=== PATIENT | female | born 1995 | race Hispanic/Latino ===

== ENCOUNTER 2018-04-06 18:50 | Emergency (ER) | payer SELFPAY ==
[2018-04-06 18:55] VITALS: BP 127/87; TEMP 98.4
--- NOTE | 2018-04-06 20:00 | ED PDOC ---
HPI: Psych/Substance Abuse Time Seen by Provider: 04/06/18 19:05 Chief Complaint (Nursing): Psychiatric Evaluation Chief Complaint (Provider): Psychiatric Evaluation History Per: Patient History/Exam Limitations: no limitations Onset/Duration Of Symptoms: Mins Current Symptoms Are (Timing): Still Present Suicide/Self Injury Attempted (Context): Cut Wrists Modifying Factor(s): None Additional Complaint(s): 23 y/o female with a PMHx of prolonged QT interval syndrome presents to the ED for psychiatric evaluation. Patient reports of having depression and suicidal thoughts prior to arrival. Patient states she cut herself multiple times with a razor on the left forearm. Patient denies any bleeding further stating cuts were more like scratches. Patient reports of similar episodes in the past. Otherwise, patient denies taking any medications for symptom relief, taking any medications for depression and any medical complaints. PMD: No provider Past Medical History Reviewed: Historical Data, Nursing Documentation, Vital Signs Vital Signs: Last Vital Signs Temp 98.4 F 04/06/18 18:53 Pulse 95 H 04/06/18 18:53 Resp 18 04/06/18 18:53 BP 127/87 04/06/18 18:53 Pulse Ox 100 04/06/18 18:53 - Medical History PMH: No Chronic Diseases - Surgical History Surgical History: No Surg Hx - Family History Family History: States: Unknown Family Hx - Social History Alcohol: None Drugs: Other (marijuana) - Home Medications Home Medications: Ambulatory Orders Medication Instructions Recorded No Known Home Med 04/06/18 - Allergies Allergies/Adverse Reactions: Allergies Allergy/AdvReac Type Severity Reaction Status Date / Time No Known Allergies Allergy Verified 04/06/18 18:55 Review of Systems ROS Statement: Except As Marked, All Systems Reviewed And Found Negative Psych: Positive for: Depression, Suicidal ideation Physical Exam - Reviewed Nursing Documentation Reviewed: Yes Vital Signs Reviewed: Yes - Physical Exam Appears: Positive for: No Acute Distress Head Exam: Positive for: ATRAUMATIC, NORMOCEPHALIC Skin: Positive for: Normal Color, Warm, Dry Eye Exam: Positive for: Normal appearance, EOMI, PERRL Neck: Positive for: Normal, Painless ROM, Supple Cardiovascular/Chest: Positive for: Regular Rate, Rhythm. Negative for: Murmur Respiratory: Positive for: Normal Breath Sounds. Negative for: Respiratory Distress Gastrointestinal/Abdominal: Positive for: Normal Exam, Soft. Negative for: Tenderness Back: Positive for: Normal Inspection. Negative for: L CVA Tenderness, R CVA Tenderness, Vertebral Tenderness Extremity: Positive for: Normal ROM, Other (Multiple abrasions to the ventral aspect of the left forearm. No bleeding or lacerations). Negative for: Pedal Edema, Deformity Neurologic/Psych: Positive for: Alert, Oriented. Negative for: Motor/Sensory Deficits - ECG O2 Sat by Pulse Oximetry: 100 (RA) Pulse Ox Interpretation: Normal Medical Decision Making Medical Decision Making: Time: 1937 Impression: Depression and Suicidal Ideation. Plan: -- Alcohol Serum -- Urine Drug Screen -- Crisis Evaluation -- ED Urine -- 1:1 Observation Time: 2122 -- Patient evaluated by crisis who state patient is stable for discharge home, cleared by Dr. Reyna with a diagnosis of adjustment disorder. _ Scribe Attestation: Documented by Faith Sewell, acting as a scribe for Lana Gibbs MD. Provider Scribe Attestation: All medical record entries made by the Scribe were at my direction and personally dictated by me. I have reviewed the chart and agree that the record accurately reflects my personal performance of the history, physical exam, medical decision making, and the department course for this patient. I have also personally directed, reviewed, and agree with the discharge instructions and disposition. Disposition - Clinical Impression Clinical Impression: Adjustment disorder - Patient ED Disposition Is Patient to be Admitted: No Doctor Will See Patient In The: Office Counseled Patient/Family Regarding: Studies Performed, Diagnosis, Need For Followup - Disposition Referrals: [facility] [Outside] Disposition: Routine/Home Disposition Time: 21:23 Condition: GOOD Additional Instructions: PIERRE CALDERON, thank you for letting us take care of you today. Your provider was Lana Gibbs MD and you were treated for PSYCH EVAL. The emergency medical care you received today was directed at your acute symptoms. If you were prescribed any medication, please fill it and take as directed. It may take several days for your symptoms to resolve. Return to the Emergency Department if your symptoms worsen, do not improve, or if you have any other problems. Please contact your doctor or call one of the physicians/clinics you have been referred to that are listed on the Patient Visit Information form that is included in your discharge packet. Bring any paperwork you were given at discharge with you along with any medications you are taking to your follow up visit. Our treatment cannot replace ongoing medical care by a primary care provider outside of the emergency department. Thank you for allowing the [facility] team to be part of your care today. If you had an X-Ray or CT scan: A Radiologist will review the ED reading if any change in treatment is needed we will contact you. If you had a blood, urine, or wound culture: It will take several days for the results, if any change in treatment is needed we will contact you. If you had an STI test: It will take 48 hours for the results. Please call after 1 week if you have not heard back. Instructions: Adjustment Disorder
[2018-04-06 21:44] VITALS: PULSE 82; RESP 16; O2SAT 99
== END 2018-04-06 21:43 | disposition home or self-care (01) ==
LOC: H.ER 18:50
DX: F43.20 Adjustment disorder, unspecified (principal); Z00.8 Encounter for other general examination; Z86.59 Personal history of other mental and behavioral disorders
CPT/HCPCS: 81025; 99283; G0480